=== PATIENT | male | born 1995 | race Caucasian/White ===

== ENCOUNTER 2017-10-07 01:35 | Emergency (ER) | payer OTHER, MEDICAID ==
[~2017-10-07] VITALS: Ht 177.8 cm; Wt 65.3 kg
--- NOTE | 2017-10-07 02:51 | NUR ---
DR. ADELINA VALLECILLO MD AT BEDSIDE FOR MSE.
[2017-10-07] MEDS ORDERED: SULFAMETH/TRIMETH 800/160 MG TABLET PO ONE (03:00)
[2017-10-07] MEDS ORDERED: SULFAMETH/TRIMETH 800/160 MG TABLET ONE (03:05)
[2017-10-07 03:08] VITALS: BP 136/88
--- NOTE | 2017-10-07 03:08 | NUR ---
Patient discharged to home in stable conditon. Written and verbal after care instructions given. Patient verbalizes understanding of instructions.
== END 2017-10-07 03:16 | disposition home or self-care (01) ==
LOC: ER 01:40
DX: J34.0 Abscess, furuncle and carbuncle of nose (principal); F17.200 Nicotine dependence, unspecified, uncomplicated
CPT/HCPCS: A4663

== ENCOUNTER 2017-11-20 16:01 | Emergency (ER) | payer OTHER, MEDICAID ==
[~2017-11-20] VITALS: Ht 180.3 cm; Wt 65.3 kg
== END 2017-11-20 16:44 | disposition home or self-care (01) ==
LOC: ER 16:04
DX: J34.0 Abscess, furuncle and carbuncle of nose (principal); F17.200 Nicotine dependence, unspecified, uncomplicated
CPT/HCPCS: A4663